=== PATIENT | male | born 1990 | race Caucasian/White ===

== ENCOUNTER → 2017-08-07 | Outpatient (CLI) | payer BC ==
[~2017-08-07] MED LIST: ALLO-119 PO; ASPI-757 PO; ASPI81TA94 PO; CALC-707 PO; CLIN40GE2 TP; DIPH-740 PO; DOXE50CA46 PO; INDO50CA92 PO; LEVO50TA86 PO; MELA3TAB31 PO; MELO-207 PO; MULT1TAB64 PO; OMEP40CA48 PO; PANT40TA65 PO; RAME8TAB43 PO; TRAZ-156 PO; TRAZ-163 PO; TRAZ150T8 PO; TRET20CR34 TP; TRI40I IM; TRI40I INTRA-ART
[2017-08-07 08:37] LABS: LDL CHOLESTEROL 76 mg/dl
== END ==
LOC: LAB 08:02
PROVIDERS: ATTEND Internal Medicine
DX: E03.9 Hypothyroidism, unspecified (principal); N18.3 Chronic kidney disease, stage 3 (moderate); E78.5 Hyperlipidemia, unspecified
CPT/HCPCS: 36415; 82040; 82247; 82310; 82374; 82435; 82465; 82565; 82947; 83718; 84075; 84132; 84155; 84295; 84443; 84450; 84460; 84478; 84520

== ENCOUNTER → 2017-08-07 | Outpatient (CLI) | payer BC ==
--- NOTE | 2017-08-07 13:17 | RADIOLOGY IMAGING REPORT ---
FACILITY: [facility] PATIENT NAME: Hiro Valverde : 1990 MR: [id number] V: [id number] EXAM DATE: ORDERING PHYSICIAN: KALYN CARDONA TECHNOLOGIST: [place] [facility] [place]: Hiro Valverde : 1990 Visit/Account:[id number] Date of Sevice: 08/07/2017 Exam type: THORACIC SPINE 2 VIEW History: back pain Comparison: None. Findings: There is a minimal S-shaped scoliosis in the thoracic spine. There is no evidence of acute fractures or subluxations. The disc spaces appear well-preserved IMPRESSION: 1. Minimal S-shaped scoliosis of the thoracic spine Report Dictated By: Marylu Hernández MD at 08/07/2017 1:13 PM Report E-Signed By: Marylu Hernández MD at 08/07/2017 1:14 PM WSN:[id number]
== END ==
LOC: RAD 11:59
PROVIDERS: ATTEND Internal Medicine
DX: M41.84 Other forms of scoliosis, thoracic region (principal)
CPT/HCPCS: 72070